=== PATIENT | female | born 1955 | race Hispanic/Latino ===

== ENCOUNTER → 2021-07-07 | Outpatient (CLI) | payer OTHER, MEDICARE | END | disposition home or self-care (01) | LOC: RAH 07:30 | PROVIDERS: ATTEND Internal Medicine Gastroenterology | DX: R11.2 Nausea with vomiting, unspecified (principal) | CPT/HCPCS: 78264; A9541 ==

== ENCOUNTER → 2021-08-01 | Outpatient (CLI) | payer OTHER, MEDICARE ==
[~2021-08-01] MED LIST: DIATR MEGLU/DIATRIZOATE SODIUM 30 ML BOTTLE ONE
== END | disposition home or self-care (01) ==
LOC: RAH 08:33
PROVIDERS: ATTEND Internal Medicine Gastroenterology
DX: R11.2 Nausea with vomiting, unspecified (principal)
CPT/HCPCS: 74240; Q9963

== ENCOUNTER → 2022-09-18 | Outpatient (CLI) | payer OTHER, MEDICARE | END | disposition home or self-care (01) | LOC: RAH 10:22 | PROVIDERS: ATTEND Internal Medicine Gastroenterology | DX: R11.2 Nausea with vomiting, unspecified (principal) | CPT/HCPCS: 78264; A9541 ==

== ENCOUNTER 2023-01-12 06:10 | Day surgery (SDC) | payer OTHER, MEDICARE ==
[2023-01-05 10:13] VITALS: BP 140/73; PULSE 68; RESP 13
[2023-01-05 10:16] LABS: BASOPHILS # (AUTO) 0.05 K/uL (0.00-0.20); BASOPHILS % (AUTO) 0.5 % (0.0-5.0); EOSINOPHILS # (AUTO) 0.34 K/uL (0.00-0.70); EOSINOPHILS % (AUTO) 3.7 % (0.0-8.0); HEMATOCRIT 40.6 % (36-48); IMMATURE GRANULOCYTE ABSOLUTE 0.02 K/uL (0-1); LYMPHOCYTES % (AUTO) 21.7 % (21.0-51.0); MEAN CORPUSCULAR HEMOGLOBIN 26.3 pg (27.0-33.0); MEAN CORPUSCULAR VOLUME 84.6 fL (79-99); MONOCYTES # (AUTO) 0.5 K/uL (0.1-1.0); MONOCYTES % (AUTO) 4.9 % (3.0-13.0); NEUTROPHILS # (AUTO) 6.3 K/uL (1.8-7.7); PLATELET COUNT (AUTO) 311 K/uL (130-400); RED CELL DISTRIBUTION WIDTH 15.2 % (11.0-15.5); WHITE BLOOD COUNT (AUTO) 9.1 K/uL (4.8-10.8)
[2023-01-05 10:35] LABS: BILIRUBIN,TOTAL 0.2 mg/dL (0.2-1.0); CREATININE 0.9 mg/dL (0.5-1.5); POTASSIUM 4.3 mmol/L (3.5-5.1); TOTAL PROTEIN, SERUM 8.4 g/dL (6.0-8.3)
[~2023-01-12] VITALS: Ht 154.9 cm; Wt 62.4 kg
[2023-01-12] VITALS (19 sets, daily range): BP systolic 119–164; BP diastolic 57–85; PULSE 67–116; RESP 10–17
[~2023-01-12 06:10] MED LIST changes: +AMLODIPINE PO; +CONSTULOSE PO; -DIATR MEGLU/DIATRIZOATE SODIUM 30 ML BOTTLE ONE; +GABA300C PO; +GLYXAMBI PO; +METFORMIN PO; +METOCLOPRAMIDE PO; +ONDANSETRON PO; +PANTOPRAZOLE PO; +QUETIAPINE PO; +SIMVASTATIN PO; +SYNTHROID PO; +[UNRECOGNIZED DRUG - OTHER] PO
[2023-01-12] MEDS ORDERED: 0.9%NACL 1000ML 1,000 ML IV ONE (07:11)
[2023-01-12] MEDS ORDERED: CEFAZOLIN SODIUM 2 GM VIAL ONE (07:11)
[2023-01-12] MEDS ORDERED: BUPIVACAINE/PF 0.25% 30ML VIAL IJ ONE (07:13)
[2023-01-12] MEDS ORDERED: LEVO100T4 PO (07:29)
[2023-01-12] MEDS ORDERED: LEVO5TAB29 PO (07:29)
[2023-01-12] MEDS ORDERED: METF-445 PO (07:29)
[2023-01-12] MEDS ORDERED: EMPA1TAB PO (07:29)
[2023-01-12] MEDS ORDERED: ONDA-105 PO (07:29)
[2023-01-12] MEDS ORDERED: MONT-46 PO (07:29)
[2023-01-12] MEDS ORDERED: PANT40TA54 PO (07:29)
[2023-01-12] MEDS ORDERED: QUET50TA24 PO (07:29)
[2023-01-12] MEDS ORDERED: AMLO1CAP PO (07:29)
[2023-01-12] MEDS ORDERED: SUCCINYLCHOLINE 200MG/10ML SYR ONE (07:38)
[2023-01-12] MEDS ORDERED: LIDOCAINE PF 100MG/5ML (2%) SYRINGE 5ML ONE (07:38)
[2023-01-12] MEDS ORDERED: PROPOFOL 10 MG/ML 20ML VIAL IV ONE (07:39)
[2023-01-12] MEDS ORDERED: GLYCOPYRROLATE 1 MG/5 ML SYRINGE ONE (07:39)
[2023-01-12] MEDS ORDERED: MIDAZOLAM HCL 1 MG/ML 2ML VIAL ONE (07:39)
[2023-01-12] MEDS ORDERED: ROCURONIUM 10MG/1ML SYR 10 MG/ML ML ONE (07:39)
[2023-01-12] MEDS ORDERED: ONDANSETRON 4MG INJ ONE ×2 (07:39→09:43)
[2023-01-12] MEDS ORDERED: FENTANYL CITRATE PF 50 MCG/1 ML 2ML VIAL ONE ×3 (07:40→09:43)
[2023-01-12] MEDS ORDERED: IOHEXOL-350 50ML VIAL IV ONE (07:49)
[2023-01-12] MEDS ORDERED: METOPROLOL TARTRATE 1 MG/ML 5ML VIAL IV ONE (08:01)
[2023-01-12] MEDS ORDERED: DEXAMETHASONE SOD PHOSPHATE 10MG/ML 1ML VIAL ONE (08:08)
[2023-01-12] MEDS ORDERED: NEOSTIGMINE METHYLSULFATE 1MG/ML IV ONE (08:39)
[2023-01-12] MEDS ORDERED: ATROPINE 1MG SYG IVP ONE (08:49)
== END 2023-01-12 11:15 | disposition home or self-care (01) ==
LOC: ENDO 06:10 → DAH 06:10 → ENDO 11:15
PROVIDERS: ATTEND Surgery
DX: K80.10 Calculus of gallbladder with chronic cholecystitis without obstruction (principal); K82.8 Other specified diseases of gallbladder; I10 Essential (primary) hypertension; E11.43 Type 2 diabetes mellitus with diabetic autonomic (poly)neuropathy; K31.84 Gastroparesis; F32.A Depression, unspecified; K21.9 Gastro-esophageal reflux disease without esophagitis; E78.5 Hyperlipidemia, unspecified; E03.9 Hypothyroidism, unspecified; M19.90 Unspecified osteoarthritis, unspecified site; F41.9 Anxiety disorder, unspecified; K44.9 Diaphragmatic hernia without obstruction or gangrene; D3A.092 Benign carcinoid tumor of the stomach; Z79.899 Other long term (current) drug therapy; Z79.01 Long term (current) use of anticoagulants; Z98.890 Other specified postprocedural states; Z98.891 History of uterine scar from previous surgery; Z80.0 Family history of malignant neoplasm of digestive organs; Z88.8 Allergy status to other drugs, medicaments and biological substances; Z79.84 Long term (current) use of oral hypoglycemic drugs
CPT/HCPCS: 80053; 85025; 86850 ×2; 86900 ×2; 86901 ×2; 36415 ×2; 93005; 47563; 82948 ×2; 88304; 74300; A6260; A4600; A4663; J7030 ×2; A4215 ×2; C1758; J3010 ×3; J3490 ×2; J0330; J1100; J0665; J2001; J0461; J2250; J2704; J2405 ×2; J2710; Q9967; J0690; C1769 ×3; G0168; A4649 ×2; A4930; A5120; A4223; A4222; A4221